=== PATIENT | female | born 2000 | race Caucasian/White ===

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

== ENCOUNTER 2023-07-24 20:17 | Emergency (ER) | payer SELFPAY ==
[2023-07-24 20:18] VITALS: BP 114/67; PULSE 83; RESP 16; TEMP 36.6; O2SAT 99; BMI 25.8
--- NOTE | 2023-07-24 20:23 | W.ED.GENADLT ---
HPI - General Adult General: Chief complaint: General Medical Stated complaint: air duster exposure Time Seen by Provider: 07/24/23 20:19 Source: patient Mode of arrival: ambulatory Limitations: no limitations History of Present Illness: 22-year-old female states she was huffing air duster states that she had passed out she went unresponsive when EMS arrived patient awake she is awake and alert and answering all my questions appropriately she has no complaints she denies any chest pain denies any shortness of breath she denies any suicidal ideation Associated symptoms: Deny chest pain, dyspnea, headache(s), nausea, rash or vomiting Review of Systems Const: Denies: fever(s), chills, body aches or change in appetite ENMT: Denies: throat pain or dental pain Card: Denies: chest pain Resp: Denies: dyspnea GI: Denies: abdominal pain, nausea, vomiting or diarrhea Musc: Denies: neck pain or back pain Skin/Breast: Denies: rash Neuro: Denies: headache(s) Psych: Denies: suicidal ideation or homicidal ideation [facility] ED PFSH: Medical History No pertinent past medical history Social History Smoking and tobacco/nicotine status: current every day tobacco/nicotine user (vape) Physical Exam Const: COMMON NORMALS: no acute distress, patient oriented x3 and healthy appearing HENMT: COMMON NORMALS: normocephalic and atraumatic HEAD & SCALP: normocephalic and atraumatic Neck/C-Spine: COMMON NORMALS: full ROM and supple Chest: COMMONS NORMALS: normal inspection of the chest Resp: COMMON NORMALS: normal respiratory effort Cardio: COMMON NORMALS: regular rate, regular rhythm and No murmurs present (Cardio) RATE: regular rate RHYTHM: regular rhythm Extremity: COMMON NORMALS: normal to inspection and full ROM Neuro: COMMON NORMALS: patient oriented x3, moves all extremities and no focal motor deficits Psych: COMMON NORMALS: mental status grossly normal, Normal thought process present and cooperative THOUGHT PROCESS: Normal thought process present THOUGHT CONTENT: No Suicidality present Skin: COMMON NORMALS: no rashes or lesions noted and no wounds GENERAL SKIN EXAM: no rashes or lesions noted Course Vital Signs: Vital signs: Vital Signs Temperature 97.9 F 07/24/23 20:18 Pulse Rate 83 07/24/23 20:18 Respiratory Rate 16 07/24/23 20:18 Blood Pressure 114/67 07/24/23 20:18 Pulse Oximetry 99 07/24/23 20:18 Oxygen Delivery Me thod Room Air 07/24/23 20:18 MDM - General Adult Medical Decision Making Patient presents here after passing out after using a air duster huffing patient's been awake and alert here she has been well-appearing she is wanting to go home she is stable for discharge EKG is normal. Medical Records I reviewed the patient's medical records. No radiology studies performed this visit EKG Data EKG 1: I personally reviewed and interpreted this EKG as follows: EKG interpretation date: 07/24/23 EKG interpretation time: 21:00 Interpretation: nsr hr [address] or t wave abnormalities qrs 82 qtc 417 Discharge Plan Discharge Patient Disposition: Home Clinical Impression: Drug abuse Condition: Stable Discharge Orders: Discharge ED (Routine); Ordered 07/24/23 Ordered By: Saul Gama Referrals: Keith Bowman MD [Physician] - Discharge Diet: Advance as tolerated Discharge Activity: Resume usual activity Patient Instructions: Syncope (ED) Coding Level of Care Code ED Financial Engineer for Nicolas Mcpherson
--- NOTE | 2023-07-24 21:00 | ECG_ITS ---
[facility] Test Date: 2023-07-24 Pat Name: Venus Ascencio Department: Room: Gender: Female [employer] Supervisor: : 2000 Requested By: Saul Gama Order Number: [id number] Denise MD: Micheal Alatorre M.D. Measurements Intervals [place] Rate: 79 P: 31 VA: 155 QRS: 57 QRSD: 82 T: 42 QT: 383 QTc: 439 Interpretive Statements SINUS RHYTHM No previous ECG available for comparison Electronically Signed On 07-25-2023 17:31:38 EMBEDDED SOFTWARE MANAGER by Micheal Alatorre M.D. [email or web address]
[2023-07-24 21:05] VITALS: BP 123/72; PULSE 89; O2SAT 99
== END 2023-07-24 21:07 | disposition home or self-care (01) ==
PROVIDERS: Emergency Provider Emergency Medicine
DX: F19.10 Other psychoactive substance abuse, uncomplicated (principal); F17.290 Nicotine dependence, other tobacco product, uncomplicated
CPT/HCPCS: 93005; 99283